=== PATIENT | male | born 1990 | race American Indian/Alaskan Native ===

== ENCOUNTER 2016-05-26 19:26 | Emergency (ER) | payer SELFPAY ==
[2016-05-26 21:06] VITALS: BP 151/100
== END 2016-05-27 02:17 | disposition left against medical advice (07) ==
LOC: ED 19:26
DX: J00 Acute nasopharyngitis [common cold] (principal); Z53.21 Procedure and treatment not carried out due to patient leaving prior to being seen by health care provider